=== PATIENT | male | born 1950 | race Caucasian/White ===

== ENCOUNTER 2020-08-14 10:22 | Inpatient (IN) | payer OTHER ==
[2020-08-14] VITALS (11 sets, daily range): BP systolic 102–138; BP diastolic 49–61
[~2020-08-14] VITALS: Ht 185.4 cm; Wt 102.5 kg
[2020-08-14 11:00] LABS: ABSOLUTE NEUTROPHILS 5.4 thou/uL (1.4-8.2); BASOPHILS 0.8 % (0.0-2.0); EOSINOPHILS 0.8 % (0.0-3.0); HEMATOCRIT 24.4 % (42.0-52.0); HEMOGLOBIN 7.2 gm/dL (14.0-18.0); LYMPHOCYTES 12.4 % (24.0-44.0); MCHC 29.5 g/dL (28.0-37.0); MCV 84.6 fL (80.0-100.0); MONOCYTES 8.4 % (1.0-8.0); PLATELET COUNT 170 thou/uL (150-400); POLYS 77.6 % (36.0-66.0); RBC 2.89 mil/uL (4.50-6.00); RDW 20.1 % (10.5-14.5); WBC 6.9 thou/uL (4.0-11.0)
[2020-08-14 11:13] LABS: PROTIME 63.7 Seconds (9.3-11.4)
[2020-08-14 11:25] LABS: CALCIUM 9.1 mg/dL (8.5-10.1); CREATININE 5.8 mg/dL (0.7-1.3); POTASSIUM 3.4 mmol/L (3.5-5.1)
[2020-08-14 11:29] LABS: ALBUMIN 1.7 g/dL (3.4-5.0); TOTAL BILIRUBIN 0.5 mg/dL (0.2-1.0); TOTAL PROTEIN 5.5 g/dL (6.4-8.2)
[2020-08-14 11:50] LABS: URINE BLOOD 3+ (Negative); URINE CLARITY CLOUDY; URINE COLOR YELLOW; URINE GLUCOSE-RANDOM* NEGATIVE (Negative); URINE KETONES NEGATIVE (Negative); URINE PROTEIN (DIPSTICK) 3+ (Negative); URINE SPECIFIC GRAVITY 1.025 (1.005-1.035)
[2020-08-14 11:52] LABS: INR 6.2
[2020-08-14 11:53] LABS: URINE LEUKOCYTES-REFLEX 3+ (Negative); URINE NITRITE-REFLEX POSITIVE (Negative)
[2020-08-14 11:54] LABS: ICTOTEST (BILI CONFIRMATORY) Negative (Negative); URINE BILIRUBIN NEGATIVE (Negative)
[2020-08-14 12:04] LABS: BE(vivo) -6.6 mmol/L (-2 to +3); HCO3 18.6 mmol/L (22.0-26.0); PCO2 35.9 mmHg (35.0-45.0); pH 7.333 (7.360-7.450); sO2 94.1 % (92.0-98.0)
[2020-08-14 12:07] LABS: CASTS None Seen /LPF (None Seen); CRYSTALS None Seen /LPF (None Seen); SQUAMOUS None Seen /LPF (0-3); URINE RBC 3-10 Few /HPF (0-2); URINE WBC-REFLEX >25 Many /HPF (0-5)
[2020-08-14] MEDS ORDERED: NORVASC 2.5 MG2.5 M1 PO (15:41)
[2020-08-14] MEDS ORDERED: WARFARIN SODIUM1 MG PO (15:41)
--- NOTE | 2020-08-14 16:53 | NUR ---
ORDER NOTED FOR CENTRAL LINE PLACEMENT. AT THIS TIME THE PATIENT IS VERY RESTLESS AND UNABLE TO LAY BACK FOR SAFE CENTRAL LINE PLACEMENT THE INR LEVEL IS A CRITICAL LEVEL- A 2ND PIV WAS PLACED UNTIL THE INR LEVEL IS REVERSED.
[2020-08-14 17:10] LABS: BE(vivo) -6.1 mmol/L (-2 to +3); HCO3 18.6 mmol/L (22.0-26.0); PCO2 33.3 mmHg (35.0-45.0); PO2 108.7 mmHg (80.0-100.0); pH 7.366 (7.360-7.450); sO2 97.9 % (92.0-98.0)
[2020-08-14] MEDS ORDERED: INSULIN AS100 UNIT/1 SUBQ (19:15)
[2020-08-14] MEDS ORDERED: TOPROL XL25 MG PO (19:16)
[2020-08-14] MEDS ORDERED: PANTOPRAZOLE SO40 M3 PO (19:16)
[2020-08-14] MEDS ORDERED: LOSARTAN POTAS100 MG PO (19:16)
[2020-08-14] MEDS ORDERED: REQUIP 0.25 M0.25 M1 PO (19:17)
[2020-08-14] MEDS ORDERED: TRAMADOL 50 MG50 MG PO (19:17)
[2020-08-14] MEDS ORDERED: ZOCOR 20 MG TAB20 M1 PO (19:17)
[2020-08-14] MEDS ORDERED: KLOR-CON 1010 MEQ PO (19:17)
[2020-08-14] MEDS ORDERED: MAPAP325 MG PO (19:19)
[2020-08-14] MEDS ORDERED: ASA81BEC PO (19:19)
[2020-08-14] MEDS ORDERED: ALLOPURINOL 10100 M3 PO (19:19)
[2020-08-14] MEDS ORDERED: CEFTRIAXONE2 GM IM (19:21)
[2020-08-14] MEDS ORDERED: DULOXETINE HCL30 MG PO (19:21)
--- NOTE | 2020-08-14 20:30 | NUR ---
PER STEPHANIE MOREL DC ISOLATION FOR COVID-19
--- NOTE | 2020-08-14 22:40 | NUR ---
2215 - PT ARRIVED FROM ER. TRANSFERED TO ICU BED. ATTACHED TO MONITOR. VITALS TAKEN PER ICU PROTOCOL. BLOOD SUGAR 91. PT STATES HE IS IN THE HOSPITAL BUT WILL NOT ANSWER ANY OTHER QUESTIONS. SHAKES HIS HEAD NO WHEN ASKED IF HE IS IN PAIN. PT LETHARGIC AND WILL ONLY OPEN EYES WHEN ASKED TO DO SO, BUT PT ALSO PERIODICALLY THRASHING ARMS AND LEGS IN BED. SEPSIS PROTOCOL INITIATED PER DR. KAYE. RT AT BEDSIDE SETTING UP BIPAP. PT ASSESSED PER ICU PROTOCOL. PT SCREAMS OUT, WHEN ASKED WHAT IS WRONG HE SAYS NOTHING. 2249 - LAB AT BEDSIDE DRAWING LABS PER SEPSIS PROTOCOL.
[2020-08-15] VITALS (33 sets, daily range): BP systolic 89–141; BP diastolic 50–81
[2020-08-15 00:16] LABS: CALCIUM 7.8 mg/dL (8.5-10.1); CREATININE 5.6 mg/dL (0.7-1.3)
[2020-08-15 00:22] LABS: POTASSIUM 5.6 mmol/L (3.5-5.1)
--- NOTE | 2020-08-15 01:12 | NUR ---
0026 - SPOKE WITH DR. KAYE REGARDING PT'S CONDITION. PT LUNGS COARSE THROUGHOUT WITH FLUIDS INFUSING. ORDER OBTAINED TO STOP FLUIDS. PT UOP 20ML FOR THE SHIFT. DR. KAYE NOTIIED THAT PT GETS HD WITH [facility] AND AT BASELINE IS OLIGURIC. DISUCSSED WITH DR. KAYE CITICAL LAB VALUES INCLUDING PROCALCITONIN: 10.16, AND A LARGE INCREASE IN GLUCOSE TO 517 AND POTASSIUM FROM 3.4 TO 5.6 GIVE THAT PT HAD D5W WITH 20 MEQ POTASSIUM RUNNING AT 75ML/HR WE QUESTION IF THAT LAB DRAW WAS ACCURATE AND WILL HAVE LAB COME REDRAW. 0122 - DR. KAYE AT BEDSIDE NOW ASSESSING PT. HE WILL PLAN ON A THORACENTESIS LATER ON TODAY.
[2020-08-15 01:14] LABS: CREATININE 6.3 mg/dL (0.7-1.3)
[2020-08-15 01:25] LABS: POTASSIUM 3.4 mmol/L (3.5-5.1)
[2020-08-15 04:26] LABS: PROTIME 44.2 Seconds (9.3-11.4)
[2020-08-15 04:43] LABS: HEMOGLOBIN 7.4 gm/dL (14.0-18.0); INR 4.3; RDW 20.4 % (10.5-14.5)
[2020-08-15 04:46] LABS: ABSOLUTE NEUTROPHILS 5.5 thou/uL (1.4-8.2); BASOPHILS 0.9 % (0.0-2.0); HEMATOCRIT 24.6 % (42.0-52.0); LYMPHOCYTES 12.4 % (24.0-44.0); MCH 25.1 pg (26.0-34.0); MCV 83.8 fL (80.0-100.0); MONOCYTES 6.6 % (1.0-8.0); PLATELET COUNT 176 thou/uL (150-400); POLYS 79.1 % (36.0-66.0); RBC 2.94 mil/uL (4.50-6.00)
[2020-08-15 04:47] LABS: CALCIUM 9.3 mg/dL (8.5-10.1); CREATININE 6.3 mg/dL (0.7-1.3); POTASSIUM 3.3 mmol/L (3.5-5.1)
[2020-08-15 05:10] LABS: BE(vivo) -6.3 mmol/L (-2 to +3); HCO3 19.2 mmol/L (22.0-26.0); PCO2 37.6 mmHg (35.0-45.0); PO2 78.9 mmHg (80.0-100.0); pH 7.325 (7.360-7.450); sO2 94.9 % (92.0-98.0)
[2020-08-15 09:19] LABS: HEMATOCRIT 24.2 % (42.0-52.0); HEMOGLOBIN 7.1 gm/dL (14.0-18.0); MCHC 29.3 g/dL (28.0-37.0); MCV 85.1 fL (80.0-100.0); RBC 2.85 mil/uL (4.50-6.00); RDW 20.5 % (10.5-14.5); WBC 7.3 thou/uL (4.0-11.0)
--- NOTE | 2020-08-15 09:26 | NUR ---
PT DROWSY WITH INTERMITTANT CONFUSION TODAY. BG LOW AND D50 GIVEN[address] EMERSON HERE AND PLAN FOR DIALYSIS THIS AFTERNOON. ORDER FOR THORACENTESIS. DISCUSSED WITH EQUINE MANAGER WELL DR RIVERS INR 4.3 AND PT 4.2. VITAMIN K GIVEN ORDERED AND PLAN TO DO THORACENTESIS TOMORROW DUE TO INR AND DIALYSIS SCHEDULE. WILL CONTINUE TO MONITOR PT.
[2020-08-15 09:28] LABS: CALCIUM 9.2 mg/dL (8.5-10.1); CREATININE 6.6 mg/dL (0.7-1.3); POTASSIUM 3.3 mmol/L (3.5-5.1)
[2020-08-15 09:37] LABS: INR 3.3; PROTIME 33.8 Seconds (9.3-11.4)
--- NOTE | 2020-08-15 12:35 | NUR ---
chart review. cm unable to visit with deb via phone call. cm left message for daughter felicity. noted he from [facility]. goes to [facility] dialysis m-w-. use of wheel chair for mobility. will cont following as needed for dc needs. updates to be sent to [place].
--- NOTE | 2020-08-15 18:17 | NUR ---
DIALYSIS TREATMENT IN PROCESS. PLAN FOR 4 HR TREATMENT. AFIB WITH HR 100-120'S THIS AFTERNOON. DR COLEMAN NOTIFIED AND ORDER RECIEVED FOR IV METOPROLOL AND CARD CONSULT. SPOKE WITH DR DUFFY AND HE WILL SEE PT IN THE AM. SPOKE WITH PT'S DAUGHTER BY PHONE AND UPDATED HER THIS AFTERNOON.
--- NOTE | 2020-08-15 21:12 | NUR ---
>>>0700 Bedside shift report received, care assumed. Pt is on hemodialysis, tolerating procedure. Denies pain or discomfort. Will continue to monitor. >>>0800 Assessements done as documented. Pt is oriented to person only. Shows signs of restlessness. Dialysis completed at this time. 1500ml of fluid removed. Dialysis fistula to NICOLE intact. Bruit and thrill present. Will continue to monitor.
[2020-08-15 23:51] LABS: CALCIUM 8.6 mg/dL (8.5-10.1); POTASSIUM 3.6 mmol/L (3.5-5.1)
[2020-08-15 23:59] LABS: CREATININE 3.6 mg/dL (0.7-1.3)
[2020-08-16] VITALS (29 sets, daily range): BP systolic 96–130; BP diastolic 45–87
[2020-08-16 04:39] LABS: CREATININE 3.8 mg/dL (0.7-1.3); POTASSIUM 3.5 mmol/L (3.5-5.1)
[2020-08-16 04:43] LABS: INR 1.9; PROTIME 19.6 Seconds (9.3-11.4)
[2020-08-16 04:48] LABS: ABSOLUTE NEUTROPHILS 5.6 thou/uL (1.4-8.2); BASOPHILS 0.5 % (0.0-2.0); EOSINOPHILS 1.3 % (0.0-3.0); HEMATOCRIT 23.8 % (42.0-52.0); HEMOGLOBIN 7.3 gm/dL (14.0-18.0); LYMPHOCYTES 13.2 % (24.0-44.0); MCH 25.5 pg (26.0-34.0); MCHC 30.7 g/dL (28.0-37.0); MCV 83.2 fL (80.0-100.0); MONOCYTES 8.8 % (1.0-8.0); PLATELET COUNT 173 thou/uL (150-400); POLYS 76.2 % (36.0-66.0); RBC 2.85 mil/uL (4.50-6.00); RDW 20.2 % (10.5-14.5); WBC 7.3 thou/uL (4.0-11.0)
--- NOTE | 2020-08-16 07:30 | EKG ---
[facility] [place] [address] ELECTROCARDIOGRAM REPORT Name: ALONZO LAMAS Room #: 239-P ADM IN M.R.#: [id number] Admission: 08/14/20 Attend Phys: Verito Walton MD Discharge: Date of : 48 Report #: [id number] THIS REPORT FOR: cc: Claudy Flor MD, Srinath MD Santiago,Akash [facility] ~ THIS REPORT FOR: //name// [facility] ED Test Date: 2020-08-14 Test Time: 10:34:23 Pat Name: ALONZO LAMAS Department: Room: 239 Gender: M Seaming Machine Operator: MARY ELLEN : 1950 Requested By: Yanick Arriaga Order Number: [id number] MD: Akash Carvajal Measurements Intervals [place] Rate: 95 P: ID: QRS: 29 QRSD: 95 T: 208 QT: 366 QTc: 460 Interpretive Statements Atrial fibrillation Nonspecific repol abnormality, diffuse leads No previous ECG available for comparison Electronically Signed On 08-16-2020 7:30:12 GAS ATTENDANT by Akash Carvajal [email or web address] <ELECTRONICALLY SIGNED> By: Akash Carvajal MD, FACC 08/16/20 0730 1034 1034 Akash Carvajal MD, [facility] /EPI
--- NOTE | 2020-08-16 09:20 | NUR ---
0900-PATIENT'S DAUGHTER WAS CALLED AND SHE WAS UPDATED AND EDUCATED ON PATIENT CONDITION AND PLAN OF CARE. CONSENT WAS RECEIVED FOR A THORACENTESIS IR.
--- NOTE | 2020-08-16 12:01 | 2DMMODE ---
[facility] [place] [address] 2 D/M-MODE ECHOCARDIOGRAM Name: ALONZO LAMAS Room #: 239-P ADM IN M.R.#: [id number] Admission: 08/14/20 Attend Phys: Verito Walton MD Discharge: Date of : 48 Report #: [id number] THIS REPORT FOR: cc: Claudy Flor MD, Srinath MD Park, Jin S. MD ~ APPROVED REPORT Study performed: 08/16/2020 11:06:49 EXAM: Comprehensive 2D, Doppler, and color-flow Echocardiogram Patient Location: ICU Room #: 239 Status: routine BSA: 2.25 HR: 111 bpm BP: 129/54 mmHg Rhythm: Atrial Fibrillation Other Information Study Quality: Good Indications Afib, hypotension, respiratory failure. Hx: Afib, ESRD, HTN,HLP, DM. 2D Dimensions RVDd: 50.83 mm IVSd: 9.98 (7-11mm) LVOT Diam: 24.26 (18-24mm) LVDd: 54.74 mm PWd: 9.53 (7-11mm) Ascending Ao: 38.01 (22-36mm) LVDs: 39.38 (25-40mm) Aortic Root: 40.39 mm Volumes Left Atrial Volume (Systole) Single Plane 4CH: 100.41 mL Single Plane 2CH: 126.92 mL LA ESV Index: 55.00 mL/m2 Aortic Valve AoV Peak Enrique.: 1.33 m/s AO Peak Gr.: 7.13 mmHg LVOT Max P.47 mmHg LVOT Max V: 1.17 m/s MARIA M Vmax: 4.[address] [facility] [address] [address] 2 D/M-MODE ECHOCARDIOGRAM Name: ALONZO LAMAS Room #: 239-P [facility] IN [facility]#: [id number] Admission: 08/14/20 Attend Phys: Verito Walton, Discharge: Date of : 48 Report #: [id number] Mitral Valve MV Decel. Time: 176.37 ms MV E Max Enrique.: 1.08 m/s Pulmonary Valve PV Peak Enrique.: 1.00 m/s PV Peak Gr.: 3.99 mmHg Tricuspid Valve TR Peak Enrique.: 2.80 m/s RAP Estimate: 15.00 mmHg TR Peak Gr.: 30.00 mmHg PA Pressure: 45.00 mmHg Left Ventricle The left ventricle is normal size. There is normal LV segmental wall motion. There is normal left ventricular wall thickness. Left ventricular systolic function is normal. LVEF is 50-55%. This study is not technically sufficient to allow evaluation of the LV diastolic function due to atrial fibrillation. Right Ventricle Right ventricle is at the upper limits of normal. The right ventricular systolic function is low normal. Atria Severe biatrial enlargement. Aortic Valve Aortic valve leaflets are mildly thickened and calcified. No aortic regurgitation is present. There is no aortic valvular stenosis. Mitral Valve Mitral valve leaflets are mildly thickened. Trace mitral regurgitation. No evidence of mitral valve stenosis. Tricuspid Valve The tricuspid valve is normal in structure. Moderate tricuspid regurgitation. Estimated PAP is 40-45mmHg. Pulmonic Valve The pulmonary valve is normal in structure. Trace pulmonic regurgitation. Great Vessels Aortic root is mildly dilated. The ascending aorta is mildly dilated. [facility] [address] [place] [address] 2 D/M-MODE ECHOCARDIOGRAM Name: ALONZO LAMAS Room #: 239-P [facility] IN M.R.#: [id number] Admission: 08/14/20 Attend Phys: Verito Walton, Discharge: Date of : 48 Report #: [id number] IVC is dilated and collapses <50% with inspiration. Pericardium There is no pericardial effusion. Right pleural effusion noted. <Conclusion> The left ventricle is normal size. There is normal left ventricular wall thickness. Left ventricular systolic function is normal. Severe biatrial enlargement. Aortic valve leaflets are mildly thickened and calcified. Trace mitral regurgitation. Moderate tricuspid regurgitation. Estimated PAP is 40-45mmHg. <ELECTRONICALLY SIGNED> By: Dimitri Owens MD 08/16/20 1201 00 1201 Dimitri Owens MD /INF
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
--- NOTE | 2020-08-16 16:34 | NUR ---
FAXED REFERRAL TO [facility] SPOKE WITH ROBERT IN ADM SHE RECEIVED REFERRAL AND WILL REVIEW. PT HAS TRANSPORTATION TO DIALYSIS AT [facility] PER FAMILY. NOTIFIED ROBERT AT [facility] OF TRANSPORT TO DIALYSIS.
--- NOTE | 2020-08-16 18:31 | NUR ---
PT ARRIVED TO UNIT FROM ICU AT APPROX 1400. PT DROWSY, ORIENTED TO SELF ONLY. APPEARS VERY CONFUSED. LACERATION ON BACK OF HEAD WITH DRESSING INTACT. DRESSING LEFT HAND CHANGED PER WOUND ORDERS. HR STABLE REMAINS IN AFIB. VSS. DENIES NEEDS. PT UNABLE TO USE CALL LIGHT APPROPRIATELY. FREQ CHECKS ON PT. PT NOT IMPULSIVE. WILL CONT TO MONITOR AND FOLLOW POC. WILL PASS ON REPORT TO NOC RN.
[2020-08-16 19:07] LABS: HEP B SURFACE Ab(ANTI-HBS Non Reactive (()); HEPATITIS B SURFACE AG Negative (Negative)
[2020-08-17] VITALS: BP 129/58
[2020-08-17 04:44] VITALS: BP 142/48
--- NOTE | 2020-08-17 05:21 | NUR ---
ASSESSMENT DOCUMENTED.PT BEEN RESTING IN NO ACUTE DISTRESS.VSS.ALERT TO SELF.FOLLOWS SIMPLE COMMANDS.PT SEEMS FATIGUED.IN NO RESP DISTRESS.ON OXYGEN AT 2LITERS PNC,SATS ADEQUATE.AFIB ON MONITOR.ON BETA BLOCKERS.ANURIC.ON HD .RIGHU UA FISTULA COVERED W/DRESSING +BRUIL + THRILL.TURNED AND REPOSITIONED Q2H.ORAL CARE PROVIDED FREQUENTLY.POC IS TO CONT WITH THE POC.
[2020-08-17 08:21] VITALS: BP 133/60
[2020-08-17 11:25] VITALS: BP 130/61
--- NOTE | 2020-08-17 16:34 | NUR ---
Family interested in new skilled facility. Patient was weak and unable to transfer for his community dialysis at [facility]. Therapy evals ordered and in process. Skilled facilities to review. Inquired also into [facility] At this time their onsite dialysis not avail but possibly in a week. Await therapy evals for review.
--- NOTE | 2020-08-17 19:37 | NUR ---
ASSUMED CARE PT SHIFT CHANGE. ASSESSMENTS CHARTED.MEDS GIVEN PER DEC. PT ALERT AND ORIENTED. VSS. PT DOES NOT SEEM TO BE IN ANY PAIN. PT REMAINS DROWSY, ORIENTED TO PERSON ONLY. CONFUSED, REORIENTED FREQUENTLY. PT CLEARED BY SPEECH FOR DIET, PT TOLERATING WELL. O2 SATS WNL ON 3L O2. PT HAD INCONTINENT LARGE BM THIS SHIFT, ANURIC THIS SHIFT. DIALYSIS COMPLETED WITH 600ML TAKEN OFF. VSS. HR REMAINS LOW 100S. PER PHYSICIAN FAMILY WAS UPATED BY THE PHYSICIAN. WOUND CARE COMPLETED PER ORDERS. PT CURRENTLY RESTING IN BED IN NO APPARENT DISTRESS. WILL CONT TO MONITOR. REPORT PASSED ONTO NOC RN.
[2020-08-17 19:57] VITALS: BP 125/63
--- NOTE | 2020-08-18 03:47 | NUR ---
ASSUMED CARE OF PATIENT AT 1900. PATIENT CONFUSED AND DISORIENTED X 4. PATIENT UNABLE TO ANSWER QUESTIONS OR FOLLOW COMMANDS. PATIENT BEGAN SHIFT ON 3L OF OXYGEN. PATIENT CONSTANTLY REMOVING NASAL CANNULA. ATTEMPTED TO TITRATE TO ROOM AIR BUT COULD NOT MAINTAIN OXYGEN SATS ABOVE 90%. PATIENT DOES NOT APPEAR TO BE PROGRESSING WELL TOWARDS CARE PLAN GOALS.
[2020-08-18 04:20] VITALS: BP 148/82
[2020-08-18 07:15] VITALS: BP 138/78
--- NOTE | 2020-08-18 09:01 | HC ---
[facility] [place] [address] CONSULTATION Name: ALONZO LAMAS Room #: 201-P ADM IN M.R.#: [id number] Admission: 08/14/20 Attend Phys: Verito Walton MD Discharge: Date of : 48 Report #: [id number] THIS REPORT FOR: cc: Claudy Flor MD, Srinath MD Stephens,Ramon Worrell MD ~ DATE OF SERVICE: 08/15/2020 WOUND CARE CONSULTATION PERSONAL PHYSICIAN: It is none on staff. CHIEF COMPLAINT: Scalp wound. HISTORY OF PRESENT ILLNESS: This is a 70-year-old white male who is a resident of [facility], who was admitted for altered mental status and possibly sepsis. Upon admission, the patient was noted to have a scalp wound, which supposedly has been present for nearly a month after a fall. The patient himself is a poor historian, unable to give any history as to actually how it occurred. Nursing staff states that the patient has no other associated wounds. We have been asked to care for the scalp wound at this time. PAST MEDICAL HISTORY: Significant for hypertension; end-stage renal disease, on hemodialysis; chronic atrial fibrillation; recent fall with a scalp laceration; severe debility. CURRENT MEDICATIONS: Multiple including Coumadin, which was stopped. DRUG ALLERGIES: SHELLFISH. SOCIAL HISTORY: The patient resides in a care facility. FAMILY HISTORY AND REVIEW OF SYSTEMS: Unobtainable because of the patient's altered mental status. PHYSICAL EXAMINATION: VITAL SIGNS: Temperature 36.6. Rest of vital signs are stable. GENERAL: This is an awake, but not oriented white male who is in no acute distress. HEENT: Normocephalic. There is an approximately 3 cm scalp laceration to the right parietal region down to the cranium. There are no signs of active bleeding. Wound edges were somewhat rolled. There is minimal serous drainage noted without signs of overt infection. Rest of the scalp was intact. Pupils are round. Sclerae white. Mucous membranes are dry. [address] [address] CONSULTATION Name: ALONZO LAMAS Room #: 201-P ADM IN M.R.#: [id number] Admission: 08/14/20 Attend Phys: Verito Walton MD Discharge: Date of : 48 Report #: [id number] NECK: Without JVD. LUNGS: Slight diminished breath sounds heard throughout. HEART: Irregularly irregular. ABDOMEN: Obese, soft, nontender. EXTREMITIES: The patient moves all extremities without difficulty. Bilateral heels are intact. Distal pulses are intact. NEUROLOGIC: Cranial nerves 2-12 grossly intact. Motor and sensory grossly intact. LABORATORY VALUES: White count 7.3, hemoglobin 7.1, albumin 1.7. CT scan of the head shows no signs of any acute abnormalities. IMPRESSION: 1. Chronic scalp wound, status post fall without signs of overt infection. 2. Altered mental status, workup undergoing. 3. Protein-calorie malnutrition -- severe with an albumin of 1.7. 4. Generalized debility. 5. End-stage renal disease, on hemodialysis. PLAN: At this time, we will begin packing the scalp wound with Aquacel Ag covering this with the foam dressing changes every other day. We will attempt to maximize the patient's oral protein supplementation per his renal diet restrictions. We will attempt to utilize physical and occupational therapy for strengthening as the patient is able. Continue all other current medications at this time. I appreciate the ability to consult. <ELECTRONICALLY SIGNED> By: Ramon Breaux MD 08/18/20 0901 1550 1934 Ramon Breaux MD /nt
[2020-08-18 09:21] LABS: HEMATOCRIT 27.5 % (42.0-52.0); MCH 24.9 pg (26.0-34.0); MCHC 29.1 g/dL (28.0-37.0); MCV 85.6 fL (80.0-100.0); RBC 3.22 mil/uL (4.50-6.00); RDW 20.2 % (10.5-14.5)
[2020-08-18 09:37] LABS: CALCIUM 9.3 mg/dL (8.5-10.1); CREATININE 3.2 mg/dL (0.7-1.3); POTASSIUM 3.5 mmol/L (3.5-5.1)
[2020-08-18 09:49] LABS: APTT 35.7 Seconds (24.5-32.8); INR 1.5; PROTIME 15.7 Seconds (9.3-11.4)
[2020-08-18 11:15] VITALS: BP 144/73
[2020-08-18 15:29] VITALS: BP 125/60
--- NOTE | 2020-08-18 17:32 | NUR ---
RECEIVED PT'S CARE AROUND 0710; PT. ON BED; ALERT; DURING AM ASSESSMENT PT. ALERT TO PERSON; DURING ASSESSMENT PT. CALLED MALE NAME AND ST. "COME HERE" "GO TO [facility]"; ORIENTED TO PLACE & SITUATION; CUTTER WOOD[employer] REEDS EMERGENCY MEDICINE SPECIALISTJUAN, NOTIFIED ABOUT PT. EATING & CRUSH MEDICATIONS; PO MEDICATION STARTED; PER REPORT DR. COLEMAN NEEDS TO CONSULT GENERAL SX IN ORDER TO SUTURE OPENNING OVER BACK HEAD; DURING ROUNDING CLARIFY WITH DR. COLEMAN; REQUESTED TO ASK WOUND CARE PHYSICIAN IF POSSIBLE; PER DR. MILLER NOT ABLE TO SUTURE DUE TO ONE MONTH OLD OPENING; DR. COLEMNA PAGED; NO CALL RETURNED; WOUND CARE PERFORMED BY WOUND CARE NURSE; PT. PULLED IV DURING THE AFTERNOON; NEW IV PLACED OVER L. ARM BY IV TEAM; REFUSED DINNER; WILL TRY LATER ON THE NIGHT; ASSESSMENT CHARGED; FOLLOWING POC; WILL PASS ON REPORT;
[2020-08-18 19:41] VITALS: BP 135/72
[2020-08-19 03:42] VITALS: BP 126/62
[2020-08-19 04:11] LABS: CALCIUM 9.3 mg/dL (8.5-10.1); POTASSIUM 3.6 mmol/L (3.5-5.1)
--- NOTE | 2020-08-19 04:22 | NUR ---
CARE ASSUMED 1900. AO X1. NO APPARENT PAIN. AFIB ON THE MONITOR. NO APPARENT DISTRESS NOTED. Q2 TURNS. VITALS STABLE. WILL CONTINUE TO MONITOR AND FOLLOW POC.
[2020-08-19 04:35] LABS: HEMATOCRIT 25.9 % (42.0-52.0); HEMOGLOBIN 7.5 gm/dL (14.0-18.0); MCH 24.9 pg (26.0-34.0); MCV 86.1 fL (80.0-100.0); RBC 3.01 mil/uL (4.50-6.00); WBC 6.9 thou/uL (4.0-11.0)
--- NOTE | 2020-08-19 08:12 | HC ---
[facility] [place] [address] CONSULTATION Name: ALONZO LAMAS Room #: 216-P ADM IN M.R.#: [id number] Admission: 08/14/20 Attend Phys: Verito Walton MD Discharge: Date of : 48 Report #: [id number] THIS REPORT FOR: cc: Claudy Flor MD, Srinath MD Al-Absi,Juan Carlos Tyson MD ~ REASON FOR CONSULTATION: End-stage renal disease. HISTORY OF PRESENT ILLNESS: Obtained from the medical chart is the patient is currently have decreased level of consciousness, is not able to provide me with any history. He is a 70-year-old with history of end-stage renal disease, maintained on hemodialysis every Saturday, Saturday and Saturday. He was sent to our facility because of altered level of his consciousness. The patient has been receiving hemodialysis every Saturday, Saturday and Saturday at the [facility]. Other details are not available for us. I was consulted to manage the patient's end-stage renal disease issues. PAST MEDICAL HISTORY: Per the medical record: 1. Hypertension. 2. Diabetes mellitus. 3. End-stage renal disease. 4. Chronic anticoagulation. ____ retirement facility. MEDICATIONS: 1. Amlodipine. 2. Losartan. 3. Pantoprazole. 4. Potassium. 5. Aspirin. 6. Ceftriaxone. ALLERGIES: SHELLFISH. REVIEW OF SYSTEMS: Unobtainable given the patient's current mental status. FAMILY HISTORY: Unobtainable given the patient's current mental status. REVIEW OF SYSTEMS: Unobtainable given the patient's current mental status. PHYSICAL EXAMINATION: GENERAL: The patient is somewhat awake, but confused. VITAL SIGNS: His temperature is 36.7. His blood pressure is 119/63. HEAD AND NECK: No jugular venous distention. [facility] [address] [place] [address] CONSULTATION Name: ALONZO LAMAS Room #: 216-P [facility] IN ..#: [id number] Admission: 08/14/20 Attend Phys: Verito Walton MD Discharge: Date of : 48 Report #: [id number] CHEST: Decreased air entry bilaterally. CARDIOVASCULAR: No rub detected. ABDOMEN: Soft. LOWER EXTREMITIES: Chronic edema and venous stasis changes. LABORATORY VALUES: Hemoglobin is 7.4, pH 7.3, pCO2 of 37. Sodium is 140, potassium is 3.3, BUN is 52, and creatinine 6.3. Chest x-ray consistent with bibasilar infiltrate. Chest CT, layering pleural effusion. ASSESSMENT, IMPRESSION, AND PLAN: 1. End-stage renal disease, maintained on hemodialysis every Saturday, Saturday and Saturday. 2. Altered mental status. 3. Elevated INR. 4. Diabetes mellitus. 5. Chronic atrial fibrillation. 6. Hypokalemia. 7. We will arrange for the patient to have his usual hemodialysis today. 8. Discontinue IV fluid. 9. Watch electrolytes. 10. Management of his coagulopathy as per the primary team. 11. Management of potential sepsis and SIRS as per the primary team. <ELECTRONICALLY SIGNED> By: Juan Carlos Conner MD 08/19/20 0812 0835 1431 Juan Carlos Conner MD /nt
[2020-08-19 08:25] VITALS: BP 104/62
--- NOTE | 2020-08-19 09:10 | NUR ---
Note Given: Y Facility List Provided:Y Facility [facility]: placement pending-SNF- daughter wants new facility. Was previously [facility]. [facility] diagnosis septicemia.
[2020-08-19 09:51] LABS: BE(vivo) 0.6 mmol/L (-2 to +3); HCO3 26.2 mmol/L (22.0-26.0); PCO2 47.4 mmHg (35.0-45.0); PO2 74.6 mmHg (80.0-100.0); pH 7.361 (7.360-7.450); sO2 94.4 % (92.0-98.0)
[2020-08-19 11:39] VITALS: BP 116/67
--- NOTE | 2020-08-19 13:37 | NUR ---
PATIENT SEEN BY DR. MASTERS THIS DATE FOR REHAB CONSULT. PATIENT DOES HAVE MEDICAL COMPLEXITY AND DIAGNOSIS FOR ACUTE REHAB, BUT AT THIS TIME IS UNABLE TO FOLLOW COMMANDS AND PARTICIPATE IN THERAPIES. WILL CONTINUE TO FOLLOW TO SEE IF PATIENT'S MENTATION IMPROVES AND PATIENT IS ABLE TO PARTICIPATE WITH THERAPY. NO DISCHARGE ANTICIPATED OVER WEEKEND PER [facility]. THANK YOU FOR THIS REFERRAL.
--- NOTE | 2020-08-19 14:14 | NUR ---
No weekend dc anticipated. Pt is more lethargic this morning and unable to participate with PT/OT/ST. ABGs done. [facility] called to see if the pt is anticipating returning there. Admisssions advised that pt may need to return there as limited options for dialysis as pt is not able to tolerate sitting in a w/c and going to an outpt clinic at this time. [facility] will need to eval if pt's sitting tolerance improves. Pt is too low endurance for acute rehab but [facility] will follow along. May be a candidate for ltac referral pending his care needs. Dialysis anticipated today. at bedside per RN. Will have the dc planner/scheduler fax clinical update to [facility] as he may need to return there. [facility] next door may be an option in a week or so once they have their [facility] up and running.
[2020-08-19 15:39] LABS: HCO3 25.5 mmol/L (22.0-26.0); PCO2 58.6 mmHg (35.0-45.0); PO2 46.1 mmHg (80.0-100.0); pH 7.256 (7.360-7.450); sO2 74.4 % (92.0-98.0)
[2020-08-19 16:30] VITALS: BP 114/49
[2020-08-19 17:15] LABS: HCO3 23.9 mmol/L (22.0-26.0); PCO2 46.2 mmHg (35.0-45.0); PO2 112.5 mmHg (80.0-100.0); pH 7.331 (7.360-7.450); sO2 97.8 % (92.0-98.0)
--- NOTE | 2020-08-19 17:15 | NUR ---
FAXED CLINICAL UPDATE TO [facility] SPOKE WITH YESI IN ADM SHE RECEIVED UPDATE. DP TO FOLLOW.
[2020-08-19 20:02] VITALS: BP 133/58
--- NOTE | 2020-08-19 20:37 | NUR ---
RECEIVED PT'S CARE AROUND 0715; PT. ON BED; RESTING WITH EYES CLOSED; AFIB ON THE MONITOR; AROUND 0800 OT REQUESTED TO WORK WITH PT.; OT REPORTED DAG COATER PT. LETHARGIC; VS WNL; 02 SAT ON THE 80s; 02 L TITRATE TO 3L; RE-ASSESSMENT 02 SAT 94%; PT. RESPOND TO NAME & STIMULATION; BG 120s; DURING DR. GOOD & JARED ROUNDING NOTIFIED ABOUT CHANGES; ORDERS ON PLACED; ABG PERFORMED BY RT; PHYSICIANS NOTIFIED WHEN RESULTS BACK; NO NEW ORDERS; MONITORING; DR. COLEMAN NOTIFIED ABOUT PT. RESTLESS & TWITCHING; SUGGESTED NEUROLOGIST; NO NEW ORDERS; AT THE BED SIDE AFTER 1000; PT'S CONCERNED ABOUT PT'S BREATHING; UPDATED ABOUT PT'S HEALTH & POC; ST. UNDERSTANDING; PER "EVERYTHING STARTED AFTER THE FALL"; PT. ABLE TO CALL 'S NAME; ATE ENSURANCE FROM BREAKFAST; RECEIVED CALL FROM DAUGHTER; UPDATE GIVEN; HOLD BP MEDICATION IN THE MORNING DUE TO SCHEDULED DIALYSIS; AROUND 12, CHECK EMAR, PT'S HR ON THE 130s; PRN MEDICATION GIVEN; DIALYSIS NURSE NOTIFIED BEFORE DIALYSIS; DURING DIALYSIS NURSE NOTIFIED PT'S BP DROPPING; DIALYSIS NURSE NOTIFIED DR. EMERSON; DIALYSIS D/C; PER REPORT PT. +500 FLUIDS; NOT ABLE TO OBTAIN 02 SAT; RT CALLED; DR. RIVERS & DR. COLEMAN CALLED; ORDERED ABG BY DR. RIVERS; ABG PERFORMED BY RT; CRITICAL RESULTS NOTIFIED TO DR. RIVERS; ORDERS ON PLACED; BYPAP ON PLACED; JUAN WELDER FITTER DIRECTOR OF CATERING NOTIFIED DURING THE AFTERNOON; ORDERS ON PLACED; PT'S DAUGHTER UPDATED; DAUGHTER REQUESTED TO BE CALL BY GARDEN IMPLEMENT MECHANIC PASSED ON REPORT; POOR APPETITE THROUGH THE DAY; PHYSICIAN AWARE; NO NEW ORDERS; ASSESSMENT CHARGED; FOLLOWING POC; PASSED ON REPORT;
[2020-08-20] VITALS: BP 124/73
--- NOTE | 2020-08-20 03:52 | NUR ---
ASSUMED CARE AT 1900. PT ORIENTED X 1. RESTLESS AND NONE VERBAL. UNABLE TO TAKE ANYTHING ORAL. PT KEPT DISCONNECTING HIS BIPAP FROM TIME TO TIME. PT TOO LETHERGIC. DR RIVERS CALLED FOR UPDATES. NO NEW ORDERS RECEIEVED. PT MAINTAINED ON BIPAP THE WHOLE NIGHT. PT DOES NOT SEEMS TO BE PROGRESING TOWARDS GOAL. WILL CONTINUE TO MONITOR.
[2020-08-20 05:00] VITALS: BP 115/52
[2020-08-20 05:10] LABS: CALCIUM 9.7 mg/dL (8.5-10.1); CREATININE 4.8 mg/dL (0.7-1.3); POTASSIUM 3.3 mmol/L (3.5-5.1)
[2020-08-20 05:13] LABS: HEMOGLOBIN 7.2 gm/dL (14.0-18.0); MCH 24.7 pg (26.0-34.0); MCHC 28.8 g/dL (28.0-37.0); MCV 85.7 fL (80.0-100.0); RBC 2.92 mil/uL (4.50-6.00); RDW 19.3 % (10.5-14.5); WBC 7.4 thou/uL (4.0-11.0)
[2020-08-20 08:30] VITALS: BP 117/54
[2020-08-20 16:00] VITALS: BP 133/59
--- NOTE | 2020-08-20 16:24 | NUR ---
ASSESSMENT CHARTED - MEDS PER DEC - PT WITH MIN REPSONSE - JERKS HEAD AND BODY ABOUT - NON VERBAL - MAKES GRUNTING SOUNDS AT TIME. PT HAS BEEN ON BIPAP THIS SHIFT - SAT 98-100%. PT HAD DILAYSIS THIS SHIFT - BP REMAINED STABLE THROUGHOUT DIALYSIS ALBUMIN GIVEN P-ER DIALYSIS NURSE ORDERED. DAUGHTER CALLED THIS SHIFT TO CHECK ON PATIENT. TURNED POST DIALYSIS. RESTING AT THE PRESENT TIME.
[2020-08-20 18:26] LABS: OBSERVED RETIC COUNT 0.82 % (0.6-2.6)
[2020-08-20 18:34] LABS: % SATURATION 22 % (20-39); IRON 18 ug/dL (65-175); TIBC 82 ug/dL (250-450)
[2020-08-20 19:08] LABS: FOLIC ACID 10.9 ng/mL (8.6-58.9)
[2020-08-20 19:55] VITALS: BP 149/46
[2020-08-21 00:13] VITALS: BP 138/54
--- NOTE | 2020-08-21 03:52 | NUR ---
ASSUMED CARE 1900. PT ALERT ON BIPAP RESTLESS. REQUESTED RT FOR A BIPAP BREAK TO ASSESS PT POSSIBLE ORAL INTAKE . PT UNABLE TO TAKE ANYTHING ORAL. HR SUSTANING > 120, LOPRESSOR IV X 1 GIVEN. PT BP STABLE AM BP 133/51 (68). PT PUT ON NC 4L OVERNIGHT, O2 SATS AT 98%. NO SIGNIFICANT DESAT NOTED. PT CURRENTLY REST . NO APPARENT PAIN, WILL CONTINUE TO MONITOR AND FOLLOW POC.
[2020-08-21 04:45] VITALS: BP 133/51
[2020-08-21 05:52] LABS: HEMOGLOBIN 7.2 gm/dL (14.0-18.0); MCH 24.7 pg (26.0-34.0); MCHC 28.8 g/dL (28.0-37.0); MCV 85.9 fL (80.0-100.0); RBC 2.91 mil/uL (4.50-6.00); RDW 19.7 % (10.5-14.5); WBC 7.6 thou/uL (4.0-11.0)
[2020-08-21 06:12] LABS: CALCIUM 9.2 mg/dL (8.5-10.1); POTASSIUM 3.5 mmol/L (3.5-5.1)
[2020-08-21 06:13] LABS: CREATININE 3.2 mg/dL (0.7-1.3)
[2020-08-21 09:00] VITALS: BP 115/45
[2020-08-21 11:40] VITALS: BP 118/55
[2020-08-21 16:00] VITALS: BP 130/59
--- NOTE | 2020-08-21 16:39 | NUR ---
ASSESSMENT CHARTED - PATIENT MORE ALERT THHIS AM - WAS ABLE TO GET HIM TO EAT ENSURE PUDDING CUP AND TAKE MEDS WITH THIS. WAS NO ABLE TO GET PATIENT TO EAT ANY LUNCH WOULD NOT WAKE UP. PT TURNED IN BED - INCONT STOOL X 2 THIS SHIFT - LIQUID AND RAN INTO CHUX - UNABLE TO GET SPECIMEN TO THE LAB. ACCUCHECKS CHARTED - NO CO'S AT THE PRESENT TIME - APPEARS TO BE RESTING COMFORTABLY.
[2020-08-21 19:45] VITALS: BP 136/64
[2020-08-22] VITALS: BP 84/50
[2020-08-22 00:02] LABS: BE(vivo) -0.2 mmol/L (-2 to +3); HCO3 27.7 mmol/L (22.0-26.0); PCO2 64.9 mmHg (35.0-45.0); sO2 98.4 % (92.0-98.0)
[2020-08-22 00:03] LABS: pH 7.248 (7.360-7.450)
--- NOTE | 2020-08-22 00:05 | NUR ---
SIDE LASTER STAPLE ACTIVATED FOR DECREASED O2 SAT. PT IMMEDIATELY PLACED ON BIPAP. NUTRITION COORDINATOR ROUNDED ON PT WITH ORDERS RECEIVED. PT TO REMAIN ON THE UNIT ON BIPAP WITH REPEAT ABG IN AN HOUR.
[2020-08-22 01:08] LABS: HCO3 25.4 mmol/L (22.0-26.0); pH 7.315 (7.360-7.450); sO2 97.4 % (92.0-98.0)
[2020-08-22 04:45] VITALS: BP 108/57
--- NOTE | 2020-08-22 06:48 | NUR ---
PATIENT LETHARGIC BUT EASILY AROUSABLE.ABLE TO TAKE HIS PILL CRUSHED.ON O2 6L NC AND SPO2 IN THE 95% AND ABOVE.CLEANING AND TURNING PATIENT WHEN HE STARTED TO DESAT IN THE 53%,AGONAL BREATHING NOTED,CYANOTIC,HEART RATE DECREASE FROM 90'S DOWN TO 50'S.BP IS 84/50.RAPID RESPONSE TEAM WAS CALLED; RESPIRATORY THERAPIST,PARKING MANAGER,BIRTH ATTENDANT AND RN TEACHER WAS HERE.ABG WAS ORDERED.WAS PLACED ON BIPAP AND RE CHECKED ABG.WILL CONTINUE TO MONITOR.POC CONTINUED.
[2020-08-22 08:10] VITALS: BP 141/74
[2020-08-22 08:45] LABS: HEMATOCRIT 25.3 % (42.0-52.0); HEMOGLOBIN 7.3 gm/dL (14.0-18.0); MCH 24.7 pg (26.0-34.0); MCV 85.4 fL (80.0-100.0); RBC 2.97 mil/uL (4.50-6.00); RDW 19.9 % (10.5-14.5); WBC 7.6 thou/uL (4.0-11.0)
[2020-08-22 11:50] VITALS: BP 112/44
[2020-08-22 13:26] LABS: CALCIUM 8.7 mg/dL (8.5-10.1); CREATININE 2.2 mg/dL (0.7-1.3); POTASSIUM 3.5 mmol/L (3.5-5.1)
--- NOTE | 2020-08-22 14:19 | NUR ---
FAXED CLINICAL UPDATE TO [facility] SPOKE WITH YESI IN ADM SHE RECEIVED UPDATE. DP TO FOLLOW.
--- NOTE | 2020-08-22 15:42 | HC ---
[facility] [place] [address] CONSULTATION Name: ALONZO LAMAS Room #: 216-P ADM IN M.R.#: [id number] Admission: 08/14/20 Attend Phys: Verito Walton MD Discharge: Date of : 48 Report #: [id number] THIS REPORT FOR: cc: Claudy Flor MD, Srinath MD [place],Pa Weaver MD ~ DATE OF SERVICE: 08/21/2020 HISTORY OF PRESENT ILLNESS: The patient is a 70-year-old male who is a custodial resident, was admitted with altered mental status on 08/14/2020, as well as shortness of breath. He has a recent history of pneumonia, was on antibiotics at that time. O2 sats were low on admission. CT scan of the head initially was negative for acute process. CT of the chest showed moderate right and small to moderate left layering pleural effusions as well as pneumonia. The patient underwent thoracentesis on 08/16. He has multiple medical problems including end-stage renal disease, on hemodialysis. He has a history of atrial fibrillation, is on chronic Coumadin therapy, his INR on admission was 6.2. This was held and has now drifted down to 1.5. Reason for GI consultation is history of anemia, to rule out the possibility of any GI bleed. The patient is a fairly poor historian at this point. He is not oriented to place. He denies any obvious bright red blood per rectum or melena. He denies any abdominal pain or diarrhea. No nausea or vomiting currently. His hemoglobin on admission was 7.2. It remains 7.2 at this time. He has not required any blood transfusions. The patient initially was in the ICU. He is now in the CCU. He had a recent laceration to the scalp. He was also in AFib with RVR at one point when hypotensive. PAST MEDICAL HISTORY: Atrial fibrillation; hypertension; end-stage renal disease, on hemodialysis; gastroesophageal reflux disease; diabetes; hyperlipidemia; pleural effusion, status post thoracentesis; pneumonia; chronic anemia; scalp laceration. ALLERGIES: SHELLFISH. REVIEW OF SYSTEMS: Limited due to the patient's mental status, but as above. FAMILY HISTORY: Unknown. SOCIAL HISTORY: Unknown. PHYSICAL EXAMINATION: VITAL SIGNS: Temperature is 36.1, pulse 120, respiratory rate 22, blood pressure 115/45. He is currently on 4 liters nasal cannula oxygen. HEENT: Sclerae nonicteric. Oropharynx clear. The patient has a laceration [address] [address] CONSULTATION Name: ALONZO LAMAS Room #: 216-P [facility] IN ..#: [id number] Admission: 08/14/20 Attend Phys: Verito Walton MD Discharge: Date of : 48 Report #: [id number] with dressing in place over his right posterior scalp. CARDIOVASCULAR: Regular rate, tachycardic. CHEST: Decreased breath sounds bilaterally anteriorly. ABDOMEN: Obese, soft, nontender, nondistended, normoactive bowel sounds. EXTREMITIES: Trace edema. There is a shunt noted in his right upper extremity for dialysis. LABORATORY AND DIAGNOSTIC DATA: WBC is 7.6, hemoglobin 7.2, MCV 85.9, platelet count is 119. INR 1.5. Sodium 143, potassium 3.5, chloride 104, bicarbonate 28, BUN 17, creatinine 3.2, glucose 100, calcium 9.2, magnesium 2.0, bilirubin is 0.5, AST 31, ALT 5, alkaline phosphatase 237. Chest x-ray from 08/19 shows persistent bibasilar pulmonary infiltrates with small right pleural effusion, which is decreased slightly in size compared to previous study. Cardiomegaly is noted. Pulmonary venous congestion. ASSESSMENT AND PLAN: Anemia. The patient with a history of chronic anemia, possibly secondary to end-stage renal disease. We will Hemoccult test stools. There is no obvious history of GI bleed; however, the patient has been on anticoagulation therapy and the question is to continue long-term. We will await stool Hemoccult testing. Hemoglobin at this time has been stable. Possible history of gastroesophageal reflux disease, was on PPI therapy, recently switched to Pepcid. We will continue to monitor. Thank you for allowing me to participate in his care. <ELECTRONICALLY SIGNED> By: Pa Perdue MD 08/22/20 1542 [id number] Pa Perdue MD /nt
[2020-08-22 16:10] VITALS: BP 111/61
--- NOTE | 2020-08-22 19:38 | NUR ---
RECEIVED PT'S CARE AROUND 724; PT. ON BED; ON BYPAP; AFIB ON THE MONITOR; CONTROL; DURING AM ASSESMENT PT. ALERT TO NAME; FOLLOWED COMMANDS; NO C/O PAIN; PO MEDICATIONS GIVEN LATE DUE TO DIALYSIS; BP WNL DUERING DIALYSIS; PER DR. DARRIUS BOYD BYPAP ON PLACED MUCH PT. TOLERATE; OK TO TAKE BREAKS FROM BYPAP FOR MEALS; ABLE TO HAVE SOME LUNCH; REFUSED DINNER; PASSED ON REPORT TO TRY LATER ON THE NIGHT; DURING MEALS PT. ON 3L; 02 SAT ABOVE 90%; PT. ALERT; SMILING; WOUND CARE PERFORMED OVER HEAD & LUE; PASSED ON REPORT; DAUGHTER UPDATED ABOUT PT'S HEALTH & POC; REQUESTED CALL BACK FROM DR. COLEMAN; PHYSICIAN NOTIFIED; NO ANSWER BACK; ASSESSMENT CHARGED; FOLLOWING POC; PASSED ON REPORT;
[2020-08-22 20:16] VITALS: BP 127/55
[2020-08-23 05:10] LABS: HEMATOCRIT 25.4 % (42.0-52.0); HEMOGLOBIN 7.4 gm/dL (14.0-18.0); MCV 86.2 fL (80.0-100.0); RBC 2.95 mil/uL (4.50-6.00); RDW 19.2 % (10.5-14.5); WBC 7.1 thou/uL (4.0-11.0)
[2020-08-23 05:17] LABS: CALCIUM 9.3 mg/dL (8.5-10.1); CREATININE 2.9 mg/dL (0.7-1.3); POTASSIUM 3.3 mmol/L (3.5-5.1)
[2020-08-23 06:12] VITALS: BP 131/59
--- NOTE | 2020-08-23 08:09 | NUR ---
PATIENT AGITATED AT THE BEGINNING OF THE SHIFT.HALDOL GIVEN.BIPAP WAS PLACED BY RESPIRATORY THERAPIST AND PT KEPT IT ALL NIGHT.REPOSITIONED Q2 HOURS.POC CONTINUED.
[2020-08-23 09:22] VITALS: BP 117/53
[2020-08-23 11:10] VITALS: BP 120/51
--- NOTE | 2020-08-23 13:28 | NUR ---
FAXED CLINICAL UPDATE TO [facility] SPOKE WITH YESI IN ADM SHE RECEIVED UPDATE. DP TO FOLLOW.
[2020-08-23 15:00] VITALS: BP 114/47
--- NOTE | 2020-08-23 16:34 | NUR ---
ASSUMED CARE OF PT AT SHIFT CHANGE. ASSESSMENT CHARTED. MEDS GIVEN PER DEC. PT ALERT TO SELF. OFF BIPAP IN MORNING AND ON 3L NC ALL DAY W/O DISTRESS. PT FED SELF PART OF LUNCH. CXR, CT, KUB COMPLETE. C/O OF PAIN ON BOTTOM D/T DIARREA, APPLIED CREAM AND Q2 TURNS. WILL CONTINUE TO MONITOR AND FOLLOW POC.
--- NOTE | 2020-08-23 17:37 | NUR ---
Sp with dtr discussed post acute care. She reports she does not want patient to return to [facility]. She reports he is just now improving from care at [facility]. Discussed difficulty if he cannot transfer for community dialysis. Referral to [facility] who is closed to admissions. Dtr requests referral to [facility] rehab. Also discussed with dtr possible candidate for LTAC and reviewed LTAC with dtr and locations. She is open to an eval. Interest in [facility] eval. Will send referrals in am.
[2020-08-23 21:25] VITALS: BP 117/60
[2020-08-24 04:45] VITALS: BP 116/47
[2020-08-24 11:20] VITALS: BP 105/57
--- NOTE | 2020-08-24 11:56 | NUR ---
Referral faxed to [facility] li[facility]ar[facility]. She is reveiwing to see if LTAC is an option due to his complex medical needs and stretcher dialysis. Rev codes sent with referral. Unit cm updated.
[2020-08-24 16:00] VITALS: BP 96/43
--- NOTE | 2020-08-24 17:09 | NUR ---
ASSUMED CARE OF PT AT SHIFT CHANGE. ASSESSMENTS CHARTED. MEDS GIVEN PER DEC. PT ALERT TO SELF, VERY CONFUSED TODAY, AGITATED. ON BIPAP DURING DIALYSIS, 2L TAKEN OFF. ON 4-5L NC, SATTING IN LOW 90S. DRESSINGS CHANGED, PHOTOS TAKEN. PLAN FOR DC TO [facility] ONCE CLEARED BY ID. WILL CONTINUE TO MONITOR AND FOLLOW POC.
[2020-08-24 20:45] VITALS: BP 101/40
--- NOTE | 2020-08-25 02:35 | NUR ---
ASSUMED CARE OF PATIENT AT 1900. PATIENT ON BIPAP. CONFUSED. CONSTANTLY PULLING TUBING OFF. ALERT, DOES NOT ANSWER QUESTIONS OR FOLLOW COMMANDS. NOT PROGRESSING TOWARDS POC GOALS.
[2020-08-25 04:45] VITALS: BP 101/47
--- NOTE | 2020-08-25 08:22 | NUR ---
PT CARE ASSUMED AT 0700. PT CHECKED AND NOTICED PT HR A6 32. DNR. FAMILY NOTIFIED BY NIGHT NURSE. ROOM SERVICE MANAGER NOTIFIED AND DAUGHTER ADDED TO VISITOR LIST. RT NOTIFIED TO CHECK BIPAP. PT RECHECKED AT 0744 FOUND TO HAVE NO HR. AUSCULTATED FOR HR WITH NO SOUND PRESENT. DOUBLE VERIFIED WITH SECOND NURSE ROSETTA. MD COLEMAN NOTIFIED. GIVEN ORDERS TO PRONOUNCE WITH SECONF NURSE. FAMILY NOTIFIED. MTN NOTIFIED. ROOM SERVICE MANAGER UPDATED. SPIRITUAL CARE NOTIFIED YARD HAND. TIME OF CALLED 0744.
--- NOTE | 2020-08-25 09:52 | NUR ---
Pt passed this morning and family is at bedside. [facility] referral and [facility] notified.
--- NOTE | 2020-08-25 12:50 | NUR ---
THIS USED CAR SALESPERSON ATTENDED THE OF THIS PATIENT. SPENT TIME WITH AND DTR. DR. COLEMAN WAS INVOLVED AND VERY HELPFUL.
--- NOTE | 2020-08-26 16:25 | HC ---
[facility] [place] [address] CONSULTATION Name: ALONZO LAMAS Room #: 216-P [facility] IN M.R.#: [id number] Admission: 08/14/20 Attend Phys: Verito Walton MD Discharge: 08/25/20 Date of : 48 Report #: [id number] THIS REPORT FOR: cc: Claudy Flor MD, Srinath MD [place],Jesse Jacobs MD ~ DATE OF SERVICE: 08/19/2020 HISTORY OF PRESENT ILLNESS: The patient is a 70-year-old male who is a dialysis patient, who had originally been sent to [facility] after a fall and from there, he went to [facility] for skilled level therapies for 3 weeks. While at [facility], he has had decreased alertness for approximately the last week with confusion, was noted to have a critically low potassium, which was supplemented. He was admitted to [facility], diagnosed with sepsis, acute respiratory failure, critically low blood glucose of 26, right pleural effusion, multiorgan failure. He has been followed closely by multiple customer service and sales consultant physicians. He was noted to have a toxic metabolic encephalopathy. His laceration on the parietal scalp is noted to be stable along with skin tear that wound care is following. Infectious Disease is following regarding the respiratory failure with right lower lobe healthcare-associated pneumonia and associated effusion with sepsis due to the above. He also has a history of anticoagulation for atrial fibrillation with warfarin toxicity that has resolved. He is continuing on broad antibiotic coverage. We are seeing him now in rehabilitation medicine consultation. PAST MEDICAL HISTORY: Includes hypertension, end-stage renal disease, anemia of chronic disease, chronic atrial fibrillation, chronic anticoagulation, fall with laceration to the scalp, severe debilitation, requiring the prior prison facility stay. MEDICATIONS: Please see the full medication listing. HABITS: Unknown if ever smoked or utilized excessive alcohol. ALLERGIES: SHELLFISH DERIVED. SOCIAL HISTORY: As noted above. He was apparently living at [facility] in the independent living apartment alone prior to the fall, hospitalization and subsequent care at [facility]. There is an involved daughter. Daughter is noted to be durable power of assistant district attorney. He has a chief cardiopulmonary technologist with [place] [employer]. REVIEW OF SYSTEMS: Unable to be obtained due to his mental status. PHYSICAL EXAMINATION: [facility] [address] [place] [address] CONSULTATION Name: ALONZO LAMAS Room #: 216-P [facility] IN .R.#: [id number] Admission: 08/14/20 Attend Phys: Verito Walton MD Discharge: 08/25/20 Date of : 48 Report #: [id number] GENERAL: A 70-year-old male lying in bed. He is on nasal prong O2, currently 3 liters. He keeps his eyes closed. I could not get him to verbalize, although he did some intermittent moaning. He would not follow basic 1 step commands for me. HEENT: Facies appeared symmetric. EXTREMITIES: As far as upper extremities, it was difficult to do any volitional manual muscle testing due to his mental status. He was able to equipment planner my hand with his left hand and some of the right hand, but it was not to command. Lower extremities, no focal calf swelling. Tone appeared to be intact. I could not get him to actually follow a volitional manual muscle testing. Therapy has worked with him and he is noted to be dependent with sit to supine and in therapies he sat at the edge of bed for 7-8 minutes on 08/18/2020. ASSESSMENT: A 70-year-old male with the following problems: 1. Toxic metabolic encephalopathy. 2. Acute hypoxemic respiratory failure. 3. Healthcare-associated pneumonia. 4. Sepsis. 5. Multiorgan failure. 6. Coagulopathy. Holding systemic anticoagulation is noted. 7. Significant hypoglycemia with blood sugar down to 26 initially. 8. Chronic atrial fibrillation. 9. Recent fall with subsequent scalp laceration prior to admission. 10. End-stage renal disease, on hemodialysis. PLAN: The patient is significantly cognitively impaired noted to have multiorgan involvement has a toxic metabolic encephalopathy. He is at very low level and at this point is not a candidate for an acute in-hospital inpatient rehabilitation stay. At this point, we will continue to follow along with you and see how he does as he further medically stabilizes. Thank you for asking us to assist in this patient's care. <ELECTRONICALLY SIGNED> By: Jesse Johnson MD 08/26/20 1625 [id number] Jesse Johnson MD /[facility]
== END 2020-08-25 07:44 | DRG 871 ==
LOC: ER 10:22 → 2N 14:29 → ICU 14:29 → EROBS 14:29 → ICU 21:23 → 2N 08-16 14:15
PROVIDERS: Emergency Medicine; Hospitalist; Internal Medicine; Internal Medicine Pulmonary Disease; Nurse Practitioner; Pediatrics; ADMIT Internal Medicine; ATTEND Internal Medicine
PROC: 5A09357 Assistance with Respiratory Ventilation, Less than 24 Consecutive Hours, Continuous Positive Airway Pressure (ICD-10-PCS; principal; 2020-08-14)
PROC: 5A09357 Assistance with Respiratory Ventilation, Less than 24 Consecutive Hours, Continuous Positive Airway Pressure (ICD-10-PCS; 2020-08-15)
PROC: 0W993ZZ Drainage of Right Pleural Cavity, Percutaneous Approach (ICD-10-PCS; 2020-08-16)
PROC: 5A09357 Assistance with Respiratory Ventilation, Less than 24 Consecutive Hours, Continuous Positive Airway Pressure (ICD-10-PCS; 2020-08-19)
PROC: 5A09357 Assistance with Respiratory Ventilation, Less than 24 Consecutive Hours, Continuous Positive Airway Pressure (ICD-10-PCS; 2020-08-20)
PROC: 5A09357 Assistance with Respiratory Ventilation, Less than 24 Consecutive Hours, Continuous Positive Airway Pressure (ICD-10-PCS; 2020-08-21)
PROC: 5A09357 Assistance with Respiratory Ventilation, Less than 24 Consecutive Hours, Continuous Positive Airway Pressure (ICD-10-PCS; 2020-08-22)
PROC: 5A09357 Assistance with Respiratory Ventilation, Less than 24 Consecutive Hours, Continuous Positive Airway Pressure (ICD-10-PCS; 2020-08-23)
PROC: 5A09357 Assistance with Respiratory Ventilation, Less than 24 Consecutive Hours, Continuous Positive Airway Pressure (ICD-10-PCS; 2020-08-24)
DX: A41.9 Sepsis, unspecified organism (principal); J18.9 Pneumonia, unspecified organism; N18.6 End stage renal disease; E43 Unspecified severe protein-calorie malnutrition; G92 Toxic encephalopathy; J96.01 Acute respiratory failure with hypoxia; I48.20 Chronic atrial fibrillation, unspecified; D68.9 Coagulation defect, unspecified; N39.0 Urinary tract infection, site not specified; J91.8 Pleural effusion in other conditions classified elsewhere; I42.9 Cardiomyopathy, unspecified; I13.2 Hypertensive heart and chronic kidney disease with heart failure and with stage 5 chronic kidney disease, or end stage renal disease; R65.20 Severe sepsis without septic shock; Z20.828 Contact with and (suspected) exposure to other viral communicable diseases; E11.22 Type 2 diabetes mellitus with diabetic chronic kidney disease; E87.6 Hypokalemia; E11.649 Type 2 diabetes mellitus with hypoglycemia without coma; T45.511A Poisoning by anticoagulants, accidental (unintentional), initial encounter; S01.01XA Laceration without foreign body of scalp, initial encounter; D63.8 Anemia in other chronic diseases classified elsewhere; S61.412A Laceration without foreign body of left hand, initial encounter; K21.9 Gastro-esophageal reflux disease without esophagitis; D69.6 Thrombocytopenia, unspecified; Z66 Do not resuscitate; R41.0 Disorientation, unspecified; I50.9 Heart failure, unspecified; Z91.013 Allergy to seafood; Z79.01 Long term (current) use of anticoagulants; Y92.89 Other specified places as the place of occurrence of the external cause; W18.39XA Other fall on same level, initial encounter; Y93.89 Activity, other specified; Y99.8 Other external cause status
CPT/HCPCS: 10078; 10081; 10196; 32100